=== PATIENT | female | born 1990 | race Caucasian/White ===

== ENCOUNTER 2017-11-10 13:35 | Emergency (ER) | payer OTHER ==
[~2017-11-10] VITALS: Ht 162.6 cm; Wt 100.2 kg
[2017-11-10 13:41] VITALS: Ht 162.6 cm; Wt 100.2 kg
[2017-11-10 15:12] VITALS: BP 128/84
== END 2017-11-10 15:12 | disposition home or self-care (01) ==
LOC: ED 13:35
DX: R07.89 Other chest pain (principal); K80.80 Other cholelithiasis without obstruction; M25.512 Pain in left shoulder; Z88.0 Allergy status to penicillin
CPT/HCPCS: Q0092

== ENCOUNTER 2018-03-12 00:43 | Emergency (ER) | payer OTHER ==
[~2018-03-12] VITALS: Ht 162.6 cm; Wt 89.8 kg
[2018-03-12 01:05] VITALS: Ht 162.6 cm; Wt 89.8 kg
[2018-03-12 02:03] LABS: PLATELET COUNT 267 x10^3mcL (130-400); RED CELL DISTRIBUTION WIDTH 13.4 % (11.5-14.5)
[2018-03-12 02:04] LABS: CARBON DIOXIDE 20.9 mmol/L (21-32); CHLORIDE SERUM 101 mmol/L (98-107); CREATININE SERUM 0.7 mg/dL (0.6-1.0); GFR1 > 60 mL/min; GLUCOSE SERUM 104 mg/dL (74-106); POTASSIUM SERUM 3.4 mmol/L (3.5-5.1); SODIUM SERUM 135 mmol/L (136-145)
[2018-03-12 02:08] LABS: BASOPHIL % 2.1 % (0-2)
[2018-03-12 02:09] LABS: ALKALINE PHOSPHATASE 85 U/L (46-116); ALT/SGPT 26 U/L (14-59); AST/SGOT 23 U/L (15-37); BILIRUBIN TOTAL 0.48 mg/dL (0.20-1.00); TOTAL PROTEIN, SERUM 7.7 g/dL (6.4-8.2)
[2018-03-12 02:10] LABS: ALBUMIN 3.3 g/dL (3.4-5.0)
[2018-03-12 03:29] LABS: microscopic required? YES; urine erythrocyte 2+ (NEGATIVE)
[2018-03-12 06:47] VITALS: BP 123/72
== END 2018-03-12 06:47 | disposition home or self-care (01) ==
LOC: ED 00:43
PROVIDERS: Emergency Medicine
DX: N10 Acute pyelonephritis (principal); R50.9 Fever, unspecified; Z88.0 Allergy status to penicillin
CPT/HCPCS: J1885; J1956; J7030

== ENCOUNTER 2018-06-13 17:04 | Emergency (ER) | payer OTHER ==
[~2018-06-13] VITALS: Ht 162.6 cm; Wt 88.5 kg
[2018-06-13 17:09] VITALS: Ht 162.6 cm; Wt 88.5 kg
[2018-06-13 18:25] LABS: BASOPHIL % 0.4 % (0-2); PLATELET COUNT 244 x10^3mcL (130-400); RED CELL DISTRIBUTION WIDTH 14.3 % (11.5-14.5)
[2018-06-13 18:34] LABS: CARBON DIOXIDE 26.6 mmol/L (21-32); CHLORIDE SERUM 105 mmol/L (98-107); CREATININE SERUM 0.7 mg/dL (0.6-1.0); GFR1 > 60 mL/min; GLUCOSE SERUM 94 mg/dL (74-106); POTASSIUM SERUM 3.3 mmol/L (3.5-5.1); SODIUM SERUM 142 mmol/L (136-145)
[2018-06-13 19:14] VITALS: BP 142/89
== END 2018-06-13 19:14 | disposition home or self-care (01) ==
LOC: ED 17:04
PROVIDERS: Emergency Medicine
DX: R07.89 Other chest pain (principal); E87.6 Hypokalemia; R00.2 Palpitations; R06.02 Shortness of breath; Z88.0 Allergy status to penicillin
CPT/HCPCS: 36415; 85378

== ENCOUNTER 2018-06-17 18:52 | Emergency (ER) | payer OTHER ==
[~2018-06-17] VITALS: Ht 162.6 cm; Wt 88.9 kg
[2018-06-17 18:54] VITALS: Ht 162.6 cm; Wt 88.9 kg
[2018-06-17 21:26] LABS: BASOPHIL % 0.1 % (0-2); PLATELET COUNT 265 x10^3mcL (130-400); RED CELL DISTRIBUTION WIDTH 14.3 % (11.5-14.5)
[2018-06-17 21:53] LABS: CALCIUM 9.1 mg/dL (8.5-10.1); CHLORIDE SERUM 103 mmol/L (98-107); CREATININE SERUM 0.6 mg/dL (0.6-1.0); GFR1 > 60 mL/min; GLUCOSE SERUM 99 mg/dL (74-106); POTASSIUM SERUM 4.1 mmol/L (3.5-5.1); SODIUM SERUM 137 mmol/L (136-145)
[2018-06-17 21:58] LABS: ALBUMIN 3.7 g/dL (3.4-5.0); ALKALINE PHOSPHATASE 79 U/L (46-116); ALT/SGPT 41 U/L (14-59); AST/SGOT 17 U/L (15-37); BILIRUBIN TOTAL 0.3 mg/dL (0.20-1.00); TOTAL PROTEIN, SERUM 8.2 g/dL (6.4-8.2)
[2018-06-17 23:23] VITALS: BP 124/83
== END 2018-06-17 23:23 | disposition home or self-care (01) ==
LOC: ED 18:52
PROVIDERS: Emergency Medicine
DX: F41.9 Anxiety disorder, unspecified (principal); F41.0 Panic disorder [episodic paroxysmal anxiety]; Z88.0 Allergy status to penicillin
CPT/HCPCS: 36415

== ENCOUNTER 2018-08-09 20:53 | Emergency (ER) | payer OTHER ==
[~2018-08-09] VITALS: Ht 162.6 cm; Wt 93.4 kg
[2018-08-09 20:58] VITALS: Ht 162.6 cm; Wt 93.4 kg
[2018-08-09 22:13] LABS: BASOPHIL % 0.4 % (0-2); PLATELET COUNT 265 x10^3mcL (130-400); RED CELL DISTRIBUTION WIDTH 13.8 % (11.5-14.5)
[2018-08-09 22:21] LABS: UA SPECIFIC GRAVITY <=1.005 (1.005-1.035); microscopic required? YES; urine erythrocyte 2+ (NEGATIVE)
[2018-08-09 22:34] LABS: ALBUMIN 3.6 g/dL (3.4-5.0); ALKALINE PHOSPHATASE 67 U/L (46-116); ALT/SGPT 27 U/L (14-59); AST/SGOT 18 U/L (15-37); BILIRUBIN TOTAL 0.3 mg/dL (0.20-1.00); CARBON DIOXIDE 26.7 mmol/L (21-32); CHLORIDE SERUM 102 mmol/L (98-107); CREATININE SERUM 0.6 mg/dL (0.6-1.0); GFR1 > 60 mL/min; GLUCOSE SERUM 96 mg/dL (74-106); LIPASE 122 IU/L (73-393); SODIUM SERUM 139 mmol/L (136-145)
[2018-08-09 22:35] LABS: TOTAL PROTEIN, SERUM 8.3 g/dL (6.4-8.2)
[2018-08-09 23:04] LABS: FREE T4 2.53 ng/dL (0.76-1.46)
[2018-08-10 01:12] VITALS: BP 135/96
== END 2018-08-10 01:13 | disposition home or self-care (01) ==
LOC: ED 20:53
PROVIDERS: Emergency Medicine
DX: F41.9 Anxiety disorder, unspecified (principal); Z87.19 Personal history of other diseases of the digestive system
CPT/HCPCS: 36415; 83880; 84439; 85378; Q0092

== ENCOUNTER 2018-08-24 16:44 | Emergency (ER) | payer OTHER ==
[~2018-08-24] VITALS: Ht 162.6 cm; Wt 101.6 kg
[2018-08-24 17:58] VITALS: BP 139/99
== END 2018-08-24 17:58 | disposition home or self-care (01) ==
LOC: ED 16:44
DX: F41.9 Anxiety disorder, unspecified (principal); Z88.0 Allergy status to penicillin
CPT/HCPCS: J2060

== ENCOUNTER 2018-09-01 16:17 | Emergency (ER) | payer OTHER ==
[~2018-09-01] VITALS: Ht 162.6 cm; Wt 91.2 kg
[2018-09-01 16:21] VITALS: Ht 162.6 cm; Wt 91.2 kg
[2018-09-01 18:00] VITALS: BP 128/96
== END 2018-09-01 18:00 | disposition home or self-care (01) ==
LOC: ED 16:17
DX: R51 Headache (principal); R03.0 Elevated blood-pressure reading, without diagnosis of hypertension; F41.9 Anxiety disorder, unspecified; Z88.0 Allergy status to penicillin
CPT/HCPCS: J1885; J2765

== ENCOUNTER 2018-10-01 22:12 | Emergency (ER) | payer OTHER ==
[~2018-10-01] VITALS: Ht 162.6 cm; Wt 90.3 kg
[2018-10-01 22:18] VITALS: Ht 162.6 cm; Wt 90.3 kg
[2018-10-01 23:25] VITALS: BP 131/101
== END 2018-10-01 23:27 | disposition home or self-care (01) ==
LOC: ED 22:12
DX: S83.92XA Sprain of unspecified site of left knee, initial encounter (principal); F41.9 Anxiety disorder, unspecified; Z88.0 Allergy status to penicillin; W26.8XXA Contact with other sharp object(s), not elsewhere classified, initial encounter; Y93.42 Activity, yoga; Y92.89 Other specified places as the place of occurrence of the external cause; Y99.8 Other external cause status
CPT/HCPCS: J1885